=== PATIENT | male | born 1950 | race Caucasian/White ===

== ENCOUNTER 2017-03-06 20:22 | Emergency (ER) | payer MEDICARE, OTHER | END 2017-03-07 00:19 | disposition home or self-care (01) | LOC: D.ER 20:22 | DX: S16.1XXA Strain of muscle, fascia and tendon at neck level, initial encounter (principal); V43.52XA Car driver injured in collision with other type car in traffic accident, initial encounter; Y93.89 Activity, other specified; Y92.410 Unspecified street and highway as the place of occurrence of the external cause; M54.2 Cervicalgia; I10 Essential (primary) hypertension ==

== ENCOUNTER 2018-02-24 20:02 | Emergency (ER) | payer MEDICARE, OTHER ==
[~2018-02-24] VITALS: Ht 175.3 cm; Wt 80.7 kg
[2018-02-24 20:23] VITALS: Ht 175.3 cm; Wt 80.7 kg
[2018-02-24] MEDS ORDERED: ZESTRIL40 MG PO (20:25)
[2018-02-24] MEDS ORDERED: LIPITOR20 MG PO (20:25)
[2018-02-24] MEDS ORDERED: TOPROL XL25 MG PO (20:25)
[2018-02-24] MEDS ORDERED: BAYER CHEWABLE81 MG PO (20:26)
[2018-02-24] MEDS ORDERED: HCTZ25 MG PO (20:26)
[2018-02-24] MEDS ORDERED: HYDROCODON-ACE1 EAC7 PO (22:59)
[2018-02-24] MEDS ORDERED: KEFLEX500 MG PO (22:59)
[2018-02-25 00:02] VITALS: BP 132/77
== END 2018-02-25 00:04 | disposition home or self-care (01) ==
LOC: D.ER 20:02
DX: S62.630B Displaced fracture of distal phalanx of right index finger, initial encounter for open fracture (principal); W23.0XXA Caught, crushed, jammed, or pinched between moving objects, initial encounter; Y93.89 Activity, other specified; Y92.019 Unspecified place in single-family (private) house as the place of occurrence of the external cause; F17.200 Nicotine dependence, unspecified, uncomplicated